=== PATIENT | female | born 2000 | race Caucasian/White ===

== ENCOUNTER 2019-10-02 06:01 | Emergency (ER) | payer MEDICAID ==
[~2019-10-02] VITALS: Ht 162.6 cm; Wt 54.5 kg
--- NOTE | 2019-10-02 06:07 | NUR ---
PT ONLY FEELING A LITTLE NAUSEATED. NO OTHER C/O ANYTHING.
[2019-10-02] MEDS ORDERED: PREN-55 PO (06:58)
[2019-10-02 07:33] VITALS: BP 98/60
[2019-10-02 07:45] LABS: CLARITY,URINE CLOUDY (Clear); COLOR,URINE YELLOW (Yellow); GLUCOSE, URINE NEGATIVE (Neg); KETONES,URINE NEGATIVE (Neg); LEUKOCYTE ESTERASE ,URINE TRACE (Neg); NITRITES, URINE NEGATIVE (Neg); OCCULT BLOOD,URINE NEGATIVE (Neg); PH,URINE 6.5 (4.8-8.0); PROTEIN,URINE NEGATIVE (Neg); URINE HCG POSITIVE (NEG); UROBILINOGEN,URINE 0.2 E.U/dL (0.2-1.0)
[2019-10-02 07:46] LABS: UA COLLECTION TYPE CLN CATCH MIDSTREAM
[2019-10-02 07:51] LABS: SQUAMOUS EPITHELIAL CELL,UR MANY /LPF (FEW)
[2019-10-02 07:52] LABS: MUCUS STRANDS MODERATE /LPF (Neg)
[2019-10-02 07:53] LABS: BACTERIA,URINE 1+ /HPF (Neg)
[2019-10-02 07:54] LABS: RBC,URINE 0-2 /HPF (0-2); TRANSITIONAL EPI CELLS,URINE FEW /HPF
[2019-10-02] MEDS ORDERED: buprenorphine/naloxone 8MG-2MG SUBlingual film SL SCH (08:00)
== END 2019-10-02 07:36 | disposition home or self-care (01) ==
LOC: ER 06:02
DX: O99.321 Drug use complicating pregnancy, first trimester (principal); Z51.81 Encounter for therapeutic drug level monitoring; F41.9 Anxiety disorder, unspecified; F32.9 Major depressive disorder, single episode, unspecified; F17.210 Nicotine dependence, cigarettes, uncomplicated; F12.90 Cannabis use, unspecified, uncomplicated; F11.90 Opioid use, unspecified, uncomplicated; Z88.8 Allergy status to other drugs, medicaments and biological substances; Z79.899 Other long term (current) drug therapy; Z3A.10 10 weeks gestation of pregnancy
CPT/HCPCS: 36415; 81001; 81025; 87491; 99283

== ENCOUNTER 2019-12-13 19:39 | Emergency (ER) | payer MEDICAID, OTHER ==
[~2019-12-13] VITALS: Ht 162.6 cm; Wt 54.5 kg
[~2019-12-13 19:39] MED LIST: PREN-55 PO
[2019-12-13 20:07] VITALS: BP 116/76
== END 2019-12-13 20:08 | disposition home or self-care (01) ==
LOC: ER 19:40
DX: O99.322 Drug use complicating pregnancy, second trimester (principal); F11.90 Opioid use, unspecified, uncomplicated; F12.90 Cannabis use, unspecified, uncomplicated; Z79.899 Other long term (current) drug therapy; Z88.8 Allergy status to other drugs, medicaments and biological substances; Z3A.20 20 weeks gestation of pregnancy
CPT/HCPCS: 99281

== ENCOUNTER 2021-06-26 21:15 | Emergency (ER) | payer MEDICAID, OTHER ==
[~2021-06-26] VITALS: Ht 162.6 cm; Wt 50.0 kg
[2021-06-26 21:38] VITALS: BP 106/60
[2021-06-26] MEDS ORDERED: ONDA4TAB6 PO (23:12)
[2021-06-26] MEDS ORDERED: DIPH25CA83 PO (23:12)
== END 2021-06-26 23:44 | disposition home or self-care (01) ==
LOC: ER 21:16
DX: F19.10 Other psychoactive substance abuse, uncomplicated (principal); F41.9 Anxiety disorder, unspecified; F29 Unspecified psychosis not due to a substance or known physiological condition; Z88.8 Allergy status to other drugs, medicaments and biological substances
CPT/HCPCS: 99283

== ENCOUNTER 2021-06-28 04:07 | Emergency (ER) | payer MEDICAID ==
[~2021-06-28 04:07] MED LIST changes: +DIPH25CA83 PO; +ONDA4TAB6 PO
== END 2021-06-28 04:33 | disposition left against medical advice (07) ==
LOC: ER 04:08
DX: Z53.21 Procedure and treatment not carried out due to patient leaving prior to being seen by health care provider (principal)

== ENCOUNTER 2023-01-30 12:05 | Emergency (ER) | payer MEDICAID ==
[~2023-01-30 12:05] MED LIST changes: +CEPH500C2 PO; +OXYC-145 PO; +SULF1TAB49 PO
--- NOTE | 2023-01-30 12:45 | NUR ---
NOT IN LOBBY.
--- NOTE | 2023-01-30 13:16 | NUR ---
NOT IN LOBBY.
--- NOTE | 2023-01-30 13:32 | NUR ---
NOT IN LOBBY.
== END 2023-01-30 13:51 | disposition left against medical advice (07) ==
LOC: ER 12:06
DX: Z00.00 Encounter for general adult medical examination without abnormal findings (principal); Z53.21 Procedure and treatment not carried out due to patient leaving prior to being seen by health care provider

== ENCOUNTER 2023-02-01 16:36 | Inpatient (IN) | payer MEDICAID ==
[~2023-02-01] VITALS: Ht 162.6 cm; Wt 56.0 kg
[2023-02-01] MEDS ORDERED: ceFAZolin 1GM/D5W- ADD-VANTAGE 50 ML IV ONE (17:35)
[2023-02-01] MEDS ORDERED: normal saline 1000ML IV soln IVB ONE (17:35)
[2023-02-01] MEDS ORDERED: vancomycin/NS 1 GM ADD-VANTAGE 250 ML IV ONE (17:35)
[2023-02-01] MEDS ORDERED: piperacillin/tazo 3.375gm/50ml 50 ML IV ONE (17:45)
[2023-02-01 17:51] LABS: BASOPHILS % (AUTO) 0.2 % (0-1); EOSINOPHILS # (AUTO) 0.2 X10'3 (0-0.9); EOSINOPHILS % (AUTO) 3.4 % (0-6); HEMATOCRIT 41.3 % (35.0-45.0); HEMOGLOBIN 13.8 g/dl (12.0-16.0); LYMPHOCYTES # (AUTO) 1.4 X10'3 (1.1-4.8); LYMPHOCYTES % (AUTO) 19.8 % (21-51); MEAN CORPUSCULAR HEMOGLOBIN 29.1 PG (27.0-31.0); MEAN CORPUSCULAR HGB CONC 33.4 g/dL (33.0-36.5); MEAN CORPUSCULAR VOLUME 87.2 FL (78-98); MEAN PLATELET VOLUME 6.3 FL (7.4-10.4); MONOCYTES # (AUTO) 0.6 X10'3 (0-0.9); MONOCYTES % (AUTO) 8.4 % (2-12); NEUTROPHILS # (AUTO) 4.8 X10'3 (1.8-7.7); NEUTROPHILS % (AUTO) 68.2 % (42-75); PLATELET COUNT 407 X10'3 (140-440); RED BLOOD COUNT 4.73 X10'6 (4.20-5.60); RED CELL DISTRIBUTION WIDTH 13.9 % (11.5-14.5)
--- NOTE | 2023-02-01 18:09 | NUR ---
patient received in ebd 12.
[2023-02-01] MEDS ORDERED: LORazepam 1 MG tablet PO ONE (18:10)
[2023-02-01 18:55] LABS: ALANINE AMINOTRANSFERASE 26 U/L (12-78); ALBUMIN 3.7 G/DL (3.4-5.0); ALBUMIN/GLOBULIN RATIO 1.2 (1.1-1.5); ALKALINE PHOSPHATASE 101 IU/L (46-116); ANION GAP 5 (8-16); ASPARTATE AMINO TRANSFERASE 13 U/L (10-37); BILIRUBIN,TOTAL 0.5 MG/DL (0.1-1.0); BLOOD UREA NITROGEN 13 MG/DL (7-18); BUN/CREATININE RATIO 16.3 (10.0-20.0); CALCIUM 9.3 MG/DL (8.5-10.1); CHLORIDE 103 MMOL/L (99-107); GLUCOSE 99 MG/DL (70-104); POTASSIUM 3.7 MMOL/L (3.5-5.1); SODIUM 137 MMOL/L (135-145); TOTAL CARBON DIOXIDE 29.5 MMOL/L (24-32); TOTAL PROTEIN 6.9 G/DL (6.4-8.2); eGFR 88 ML/MIN
[2023-02-01] MEDS ORDERED: potassium Cl 20 mEq SR tablet PO PRN ×2 (18:55)
[2023-02-01] MEDS ORDERED: morphine 2 MG/ML inj. syringe IV PRN (18:55)
[2023-02-01] MEDS ORDERED: potassium Cl 40MEQ/1/2NS 520ml 520 ML IV PRN (18:55)
[2023-02-01] MEDS ORDERED: acetaminophen 325mg tablet PO PRN (18:55)
[2023-02-01] MEDS ORDERED: magnesium 4gm in 100ml NS 100 ML IV PRN (18:55)
[2023-02-01] MEDS ORDERED: magnesium Cl slow-release 64mg tablet PO PRN (18:55)
[2023-02-01] MEDS ORDERED: ondansetron/PF 4mg/2ml inj IV PRN (18:55)
[2023-02-01] MEDS ORDERED: magnesium 2GM in 50ml NS 50 ML IV PRN (18:55)
[2023-02-01] MEDS: normal saline 1000ml 1,000 ML IV SCH (19:23)
[2023-02-01] MEDS: LORazepam 1 MG tablet PO PRN ×2 (19:46→22:00)
--- NOTE | 2023-02-01 20:26 | NUR ---
SO- Baron: [phone]
[2023-02-01] MEDS: K and/or MAG REPLACEMENT MC SCH (20:32)
[2023-02-01 22:00] VITALS: BP 99/54
[2023-02-01 22:40] LABS: HCG SERUM QL NEGATIVE
[2023-02-02] VITALS (7 sets, daily range): BP systolic 89–111; BP diastolic 45–67
--- NOTE | 2023-02-02 02:06 | NUR ---
Pt wound burst, and it began to drain. Serosanguineous puss was observed. Wound was cleaned with NS. A non adherent pad placed, and wrapped with a gauze bandage.
[2023-02-02] MEDS: LORazepam 1 MG tablet PO PRN (03:16)
[2023-02-02] MEDS: normal saline 1000ml 1,000 ML IV SCH (04:55)
[2023-02-02 05:41] LABS: BASOPHILS % (AUTO) 0.3 % (0-1); EOSINOPHILS # (AUTO) 0.1 X10'3 (0-0.9); EOSINOPHILS % (AUTO) 2.6 % (0-6); HEMATOCRIT 36.9 % (35.0-45.0); HEMOGLOBIN 12.3 g/dl (12.0-16.0); LYMPHOCYTES # (AUTO) 1.3 X10'3 (1.1-4.8); MEAN CORPUSCULAR HEMOGLOBIN 28.9 PG (27.0-31.0); MEAN CORPUSCULAR HGB CONC 33.4 g/dL (33.0-36.5); MEAN CORPUSCULAR VOLUME 86.5 FL (78-98); MEAN PLATELET VOLUME 6.7 FL (7.4-10.4); MONOCYTES # (AUTO) 0.5 X10'3 (0-0.9); NEUTROPHILS # (AUTO) 3.6 X10'3 (1.8-7.7); NEUTROPHILS % (AUTO) 65.1 % (42-75); PLATELET COUNT 368 X10'3 (140-440); RED BLOOD COUNT 4.26 X10'6 (4.20-5.60); RED CELL DISTRIBUTION WIDTH 13.9 % (11.5-14.5); WHITE BLOOD COUNT 5.5 X10'3 (4.5-11.0)
[2023-02-02 06:15] LABS: ANION GAP 8 (8-16); BLOOD UREA NITROGEN 15 MG/DL (7-18); BUN/CREATININE RATIO 21.7 (10.0-20.0); CALCIUM 8.5 MG/DL (8.5-10.1); CHLORIDE 103 MMOL/L (99-107); CREATININE 0.69 MG/DL (0.40-0.90); GLUCOSE 90 MG/DL (70-104); MAGNESIUM 1.7 MG/DL (1.5-2.4); POTASSIUM 3.9 MMOL/L (3.5-5.1); SODIUM 136 MMOL/L (135-145); TOTAL CARBON DIOXIDE 25.5 MMOL/L (24-32); eGFR > 90 ML/MIN
--- NOTE | 2023-02-02 06:40 | NUR ---
Patient in room ORTHO 4013. I have received report from Loyda and had the opportunity to ask questions and assume patient care.
--- NOTE | 2023-02-02 06:41 | NUR ---
Problems reprioritized. Patient report given, questions answered & plan of care reviewed with ALEX Tate.
[2023-02-02] MEDS ORDERED: BUPIVAcaine/PF 2.5 mg/ml (0.25%) 30ml vial ONE (07:24)
[2023-02-02] MEDS ORDERED: ondansetron/PF 4mg/2ml inj IV PRN (08:00)
[2023-02-02] MEDS ORDERED: meperidine/PF 25mg/ml syringe IV PRN ×3 (08:00)
[2023-02-02] MEDS ORDERED: ringers solution, lacted 1,000 ML IV SCH (08:00)
[2023-02-02] MEDS ORDERED: proCHLORperazine 10 MG/2 ml inj IV PRN (08:00)
[2023-02-02] MEDS ORDERED: morphine 2 MG/ML inj. syringe IV PRN (08:00)
[2023-02-02] MEDS: K and/or MAG REPLACEMENT MC SCH (08:00)
[2023-02-02] MEDS ORDERED: acetaminophen 1,000mg/100ml IV 100 ML IV PRN (08:00)
[2023-02-02] MEDS ORDERED: labetalol 20mg/4ml (5mg/ml) syringe IV PRN (08:00)
[2023-02-02] MEDS ORDERED: hydrALAZINE 20mg/ml inj. IV PRN (08:00)
[2023-02-02] MEDS ORDERED: ketorolac trometh. 30mg/ml inj. IV ONE (08:00)
[2023-02-02] MEDS ORDERED: morphine 4 MG/ML inj SYRINge IV PRN (08:00)
[2023-02-02] MEDS ORDERED: midazolam 1 mg/ML 2ml injection ONE (08:05)
[2023-02-02] MEDS ORDERED: fentaNYL/PF 50MCG/1 ML 2ML syringe ONE (08:06)
[2023-02-02] MEDS ORDERED: dexamethasone sod phosphate 4mg/ml inj. ONE (08:22)
[2023-02-02] MEDS ORDERED: ceFAZolin 1000mg inj ONE ×2 (08:22)
[2023-02-02] MEDS ORDERED: propofol inj 20 ML IV ONE (08:22)
[2023-02-02] MEDS ORDERED: LIDOcaine 2% (20mg/ml) 5ml vial ONE (08:22)
[2023-02-02] MEDS ORDERED: ondansetron/PF 4mg/2ml inj ONE (08:23)
--- NOTE | 2023-02-02 08:53 | NUR ---
Received from OR via , accompanied by Anesthesiologist DR MCKNIGHT and report given by Anesthesiolgist. PT AWAKE, ALERT, MOVING EXT X 4, LEFT FINGER DRESSING WITH EMMETT WRAP SHOWING RED DRAINAGE. SKIN WARM AND PINK, NO C/O PAIN, VSS, LEFT EJ PATENT WITH NS 100MLS/HR.
--- NOTE | 2023-02-02 09:09 | NUR ---
Patient in room ORTHO 4013. I have received report from Francy in recovery and had the opportunity to ask questions and assume patient care.
--- NOTE | 2023-02-02 09:23 | NUR ---
Report called to receiving nurse. Transferred via BED Belongings [CELL PHONE WITH PT). Special Issues communicated to receiving nurse LAURI JOHNSON. PT IS AWAKE, ALERT, TEXTING ON HER PHONE, NO C/O PAIN, VSS, EJ LEFT PATENT, NORY FLUIDS, PT MEETS DISCHARGE CRITERIA.
--- NOTE | 2023-02-02 09:41 | NUR ---
RE: [facility] in [id number], pt wishes to DC, possible AMA, just returned from OR for I&D, please advise Beulah
--- NOTE | 2023-02-02 12:01 | NUR ---
Patient went to OR at 0745, returned from OR at 0910. Immediately patient's SO was stating patient wanted to go home. Advised of the process and that this ticket writer would page the hospitalist. Patient stated she wanted to stay to receive ABX and discharge appropriately with medications. Shortly after the SO came out of the room stating the patient wished to AMA. Removed IV, patient signed AMA form, previously phoned surgeon. patient walked to the elevator and out of the hospital accompanied by her SO.
[2023-02-02] MEDS ORDERED: piperacillin/tazo 3.375gm/50ml 50 ML IV SCH (16:00)
== END 2023-02-02 10:10 | disposition left against medical advice (07) | DRG 316 ==
LOC: ER 16:37 → ED HOLD 18:58 → ORTHO 4S 20:05
PROVIDERS: ADMIT Internal Medicine; ATTEND Internal Medicine
PROC: 0LB80ZZ Excision of Left Hand Tendon, Open Approach (ICD-10-PCS; principal; 2023-02-02 07:51)
DX: M65.842 Other synovitis and tenosynovitis, left hand (principal); F17.210 Nicotine dependence, cigarettes, uncomplicated; L03.012 Cellulitis of left finger; L02.512 Cutaneous abscess of left hand; Z53.29 Procedure and treatment not carried out because of patient's decision for other reasons; F32.A Depression, unspecified; F41.9 Anxiety disorder, unspecified; S60.429A Blister (nonthermal) of unspecified finger, initial encounter; X58.XXXA Exposure to other specified factors, initial encounter; Y93.89 Activity, other specified; Y92.89 Other specified places as the place of occurrence of the external cause; Y99.8 Other external cause status; Z88.8 Allergy status to other drugs, medicaments and biological substances; Z79.899 Other long term (current) drug therapy; Z28.310 Unvaccinated for COVID-19; Z71.6 Tobacco abuse counseling
CPT/HCPCS: 36415; 80048; 80053; 83605; 83735; 84145; 84703; 85025; 87040; 87070; 87075; 87077; 87081; 87186; 99285; A4615; A4618; A6258; A6446; A6449; A7000; G0378; J0690; J1100; J2250; J2270; J2405; J2543; J2704; J3010; J3370; J3490; J7030; J7120

== ENCOUNTER 2024-04-26 09:57 | Emergency (ER) | payer MEDICAID ==
[~2024-04-26] VITALS: Ht 162.6 cm; Wt 57.0 kg
[~2024-04-26 09:57] MED LIST changes: -CEPH500C2 PO; -DIPH25CA83 PO; -ONDA4TAB6 PO; -OXYC-145 PO; -SULF1TAB49 PO
[2024-04-26 10:02] VITALS: BP 110/73; PULSE 109; RESP 16; TEMP 98.4; O2SAT 98
[2024-04-26 10:35] LABS: BILIRUBIN,URINE NEGATIVE (Neg); CLARITY,URINE CLOUDY (Clear); COLOR,URINE YELLOW (Yellow); GLUCOSE, URINE NEGATIVE (Neg); KETONES,URINE NEGATIVE (Neg); LEUKOCYTE ESTERASE ,URINE NEGATIVE (Neg); NITRITES, URINE NEGATIVE (Neg); OCCULT BLOOD,URINE SMALL (Neg); PROTEIN,URINE NEGATIVE (Neg); URINE HCG POSITIVE (NEG)
[2024-04-26 10:39] LABS: UA COLLECTION TYPE CLN CATCH MIDSTREAM
[2024-04-26 10:42] LABS: RBC,URINE 0-2 /HPF (0-2)
[2024-04-26 10:43] LABS: AMORPHOUS URATES 1+; BACTERIA,URINE 4+ /HPF (Neg); MUCUS STRANDS NONE SEEN /LPF (Neg); SQUAMOUS EPITHELIAL CELL,UR FEW /LPF (FEW)
== END 2024-04-26 11:58 | disposition left against medical advice (07) ==
LOC: ER 09:57
DX: O46.8X9 Other antepartum hemorrhage, unspecified trimester (principal); Z53.21 Procedure and treatment not carried out due to patient leaving prior to being seen by health care provider; Z88.8 Allergy status to other drugs, medicaments and biological substances
CPT/HCPCS: 81001; 81025; 87077; 87088; 87186